=== PATIENT | female | born 1940 | race Caucasian/White ===

== ENCOUNTER 2017-03-27 21:57 | Emergency (ER) | payer MEDICARE ==
[2017-03-27] MEDS ORDERED: IOHEXOL 350 MG/ML 10 ML VIAL (for RAD DIAG) IVCONTRAST ONE (21:58)
[2017-03-27 22:00] VITALS: O2SAT 98
[2017-03-27 22:20] LABS: I-STAT POTASSIUM 3.8 MMOL/L (3.5-4.9); I-STAT SODIUM 141 MMOL/L (138-146)
[2017-03-27 22:26] LABS: BACTERIA, URINE RARE /hpf; BLOOD, URINE NEG (NEG); GLUCOSE,URINE NEG (NEG); HYALINE CAST, URINE 36 /lpf (RARE); KETONE, URINE NEG (NEG); MUCUS URINE FEW /lpf (OCC); NITRITE,URINE NEG (NEG); PH, URINE 5.5 (5.0-8.5); SQUAMOUS EPITHELIAL CELL URINE 3 /hpf (0-5); URINE COLOR YELLOW (YELLW/STRAW)
[2017-03-27 22:27] LABS: AUTOMATED NEUTROPHIL # 3.7 TH/MM3 (1.8-7.7); BASOPHIL % 0.4 % (0.0-2.0); EOSINOPHIL # 0.1 TH/MM3 (0-0.4); EOSINOPHIL % 1.4 % (0.0-4.0); HEMATOCRIT 39.6 % (35.0-46.0); HEMO FLAGS DIFF FINAL; LYMPH % 53.3 % (9.0-44.0); LYMPHOCYTE # 5.1 TH/MM3 (1.0-4.8); MEAN CELL VOLUME 98.4 FL (80.0-100.0); MEAN CORPUSCULAR HEMOGLOBIN 33.2 PG (27.0-34.0); MEAN CORPUSCULAR HGB CONC 33.7 % (32.0-36.0); MONO % 5.7 % (0.0-8.0); NEUT % 39.2 % (16.0-70.0); PLATELET COUNT 255 TH/MM3 (150-450); RED BLOOD COUNT 4.02 MIL/MM3 (4.00-5.30); RED CELL DISTRIBUTION WIDTH 16.6 % (11.6-17.2); WHITE BLOOD COUNT 9.6 TH/MM3 (4.0-11.0)
--- NOTE | 2017-03-27 22:27 | RADRPT ---
EXAM DATE/TIME: 03/27/2017 22:05 [facility] COMPARISON: No previous studies available for comparison. INDICATIONS : Trauma alert. Patient was found unresponsive. MEDICAL HISTORY : None. SURGICAL HISTORY : None. ENCOUNTER: Initial ACUITY: 1 day PAIN SCORE: Non-responsive. LOCATION: chest FINDINGS: A single view of the chest demonstrates no focal lung consolidation. No effusion. Loop recorder ident ified left hemithorax. Previous fixation lower cervical spine. CONCLUSION: 1. No acute findings. Tortuous aorta. Eugenio Cantu MD on March 27, 2017 at 22:24 Board Certified Radiologist. This report was verified electronically.
[2017-03-27 22:28] LABS: COMMENT (UR) CATH-CULTURE IND; CULTURE IF INDICATED CATH CULTURE IND
--- NOTE | 2017-03-27 22:33 | RADRPT ---
EXAM DATE/TIME: 03/27/2017 22:15 [facility] COMPARISON: No previous studies available for comparison. INDICATIONS : Trauma. Fall. RADIATION DOSE: 50.23 CTDIvol (mGy) MEDICAL HISTORY : Non-responsive. SURGICAL HISTORY : Non-responsive. ENCOUNTER: Initial ACUITY: 1 day PAIN SCALE: Non-responsive LOCATION: cranial TECHNIQUE: Multiple contiguous axial images were obtained of the head. Using automated exposure control and adj ustment of the mA and/or kV according to patient size, radiation dose was kept as low as reasonably a chievable to obtain optimal diagnostic quality images. DICOM format image data is available electro nically for review and comparison. FINDINGS: CEREBRUM: The ventricles are normal for age. No evidence of midline shift, mass lesion, hemorrhage or acute in farction. No extra-axial fluid collections are seen. POSTERIOR FOSSA: The cerebellum and brainstem are intact. The 4th ventricle is midline. The cerebellopontine angle i s unremarkable. EXTRACRANIAL: The visualized portion of the orbits is intact. SKULL: The calvaria is intact. No evidence of skull fracture. CONCLUSION: 1. No acute intracranial abnormality. Eugenio Cantu MD on March 27, 2017 at 22:30 Board Certified Radiologist. This report was verified electronically.
[2017-03-27 22:34] LABS: APTT (PATIENT) 21.3 SEC (24.3-30.1)
--- NOTE | 2017-03-27 22:36 | RADRPT ---
EXAM DATE/TIME: 03/27/2017 22:15 [facility] COMPARISON: No previous studies available for comparison. INDICATIONS : Trauma. Fall. RADIATION DOSE: 24.80 CTDIvol (mGy) MEDICAL HISTORY : Non-responsive. SURGICAL HISTORY : Non-responsive. ENCOUNTER: Initial ACUITY: 1 day PAIN SCALE: Non-responsive LOCATION: neck TECHNIQUE: Volumetric scanning of the cervical spine was performed. Multiplanar reconstructions in the sagittal, coronal and oblique axial planes were performed. Using automated exposure control and adjustment o f the mA and/or kV according to patient size, radiation dose was kept as low as reasonably achievable to obtain optimal diagnostic quality images. DICOM format image data is available electronically f or review and comparison. FINDINGS: There is previous fusion across C4-5-6-7 with anterior plate fixation. Minimal degenerative anterolis thesis of C7 on T1. No significant central bony canal stenosis. No acute fracture. No prevertebral so ft tissue swelling. CONCLUSION: 1. No acute fracture. Previous fusion C4-7. Minimal anterolisthesis of C7 on T1 likely degenerative. Eugenio Cantu MD on March 27, 2017 at 22:31 Board Certified Radiologist. This report was verified electronically.
[2017-03-27 22:41] VITALS: BP 141/80; PULSE 87; RESP 18; O2SAT 98
--- NOTE | 2017-03-27 22:41 | RADRPT ---
EXAM DATE/TIME: 03/27/2017 22:15 [facility] COMPARISON: No previous studies available for comparison. INDICATIONS : Trauma. Fall. RADIATION DOSE: 64.00 CTDIvol (mGy) MEDICAL HISTORY : Non-responsive. SURGICAL HISTORY : Non-responsive. ENCOUNTER: Initial ACUITY: 1 day PAIN SCORE: Non-responsive LOCATION: facial TECHNIQUE: Volumetric scanning of the facial bones was performed. Using automated exposure control and adjustme nt of the mA and/or kV according to patient size, radiation dose was kept as low as reasonably achiev able to obtain optimal diagnostic quality images. DICOM format image data is available [employer] y for review and comparison. FINDINGS: ORBITS: The orbital and infraorbital osseous structures are intact. The retroconal structures have a normal configuration. No radiopaque foreign bodies are seen. NASAL BONE: Remote Right nasal bone fracture. ZYGOMATIC ARCHES: Symmetric without evidence of fracture. SINUSES: The maxillary, ethmoid and frontal sinuses are intact. No air-fluid levels seen. NASAL CAVITY: The nasal septum is intact and midline. The lacrimal ducts are intact. SOFT TISSUES: No radiopaque foreign bodies seen. No soft-tissue swelling is seen. INTRACRANIAL: No intracranial air seen. CRIBIFORM PLATE: Grossly intact. CONCLUSION: 1. Remote right nasal bone fracture. CT facial bones otherwise unremarkable. Eugenio Cantu MD on March 27, 2017 at 22:38 Board Certified Radiologist. This report was verified electronically.
--- NOTE | 2017-03-27 22:44 | RADRPT ---
EXAM DATE/TIME: 03/27/2017 22:21 [facility] COMPARISON: No previous studies available for comparison. INDICATIONS : Trauma. Fall. IV CONTRAST: 95 cc Omnipaque 350 (iohexol) IV ; Cumulative dose for multiple exams. ORAL CONTRAST: No oral contrast ingested. RADIATION DOSE: 18.26 CTDIvol (mGy) ; Combined studies - Thorax/Abdomen/Pelvis MEDICAL HISTORY : Non-responsive. SURGICAL HISTORY : Non-responsive. ENCOUNTER: Initial ACUITY: 1 day PAIN SCALE: 10/10 LOCATION: Bilateral abdomen TECHNIQUE: Volumetric scanning of the abdomen and pelvis was performed. Using automated exposure control and ad justment of the mA and/or kV according to patient size, radiation dose was kept as low as reasonably achievable to obtain optimal diagnostic quality images. DICOM format image data is available electro nically for review and comparison. FINDINGS: Nondependent right is in the lung bases. No effusion or pneumothorax. Mild fatty liver. Pneumobilia is previous cholecystectomy. Spleen, adrenals, kidneys and pancreas dem onstrate no acute findings. Small fat containing umbilical hernia. No free fluid. No bowel obstructio n. No adenopathy. Hensley catheter present in the bladder. Degenerative changes in the spine with a mil d scoliosis. CONCLUSION: 1. No acute traumatic injury within the abdomen and pelvis. Previous cholecystectomy with pneumobilia . Mild fatty liver. No solid visceral injury. No free air or free fluid. Eugenio Cantu MD on March 27, 2017 at 22:39 Board Certified Radiologist. This report was verified electronically.
--- NOTE | 2017-03-27 22:46 | RADRPT ---
EXAM DATE/TIME: 03/27/2017 22:21 [facility] COMPARISON: No previous studies available for comparison. INDICATIONS : Trauma. Fall. IV CONTRAST: 95 cc Omnipaque 350 (iohexol) IV ; Cumulative dose for multiple exams. RADIATION DOSE: 18.26 CTDIvol (mGy) ; Combined studies - Thorax/Abdomen/Pelvis MEDICAL HISTORY : Non-responsive. SURGICAL HISTORY : Non-responsive. ENCOUNTER: Initial ACUITY: 1 day PAIN SCALE: Non-responsive LOCATION: chest TECHNIQUE: Volumetric scanning of the chest was performed. Using automated exposure control and adjustment of t he mA and/or kV according to patient size, radiation dose was kept as low as reasonably achievable to obtain optimal diagnostic quality images. DICOM format image data is available electronically for review and comparison. Follow-up recommendations for detected pulmonary nodules are based at a minimum on nodule size and pa tient risk factors according to Fleischner Society Guidelines. FINDINGS: Mild dependent atelectasis in the lungs. No pleural or pericardial effusion. No pneumothorax. Healing lower left anterior rib fracture. No acute rib fractures are seen. Negative for traumatic aortic injury. No mediastinal hematoma. Small hiatal hernia. See abdomen CT fo r findings below the diaphragm. CONCLUSION: 1. Negative for acute traumatic injury within the thorax. Eugenio Cantu MD on March 27, 2017 at 22:43 Board Certified Radiologist. This report was verified electronically.
--- NOTE | 2017-03-27 22:51 | RADRPT ---
EXAM DATE/TIME: 03/27/2017 22:21 [facility] COMPARISON: No previous studies available for comparison. INDICATIONS : Trauma. Fall. RADIATION DOSE: ; Reconstructed from previous dataset, no dose MEDICAL HISTORY : Non-responsive. SURGICAL HISTORY : Non-responsive. ENCOUNTER: Initial ACUITY: 1 day PAIN SCALE: Non-responsive LOCATION: Bilateral lumbar TECHNIQUE: Volumetric scanning of the lumbar spine was performed. Multiplanar reconstructions in the sagittal, coronal and oblique axial planes were performed. Using automated exposure control and adjustment of the mA and/or kV according to patient size, radiation dose was kept as low as reasonably achievable t o obtain optimal diagnostic quality images. DICOM format image data is available electronically for review and comparison. FINDINGS: Advanced degenerative disc disease is present in the lumbar spine with a mild dextroscoliosis and vac uum phenomenon at every level between L2-S1. There is no acute fracture. Minimal degenerative anterol isthesis of L4 on L5. L4-5 there is at least a moderate central canal stenosis from disc protrusion a nd facet arthropathy. No significant canal stenosis in the upper lumbar spine. Broad-based disc protr usion also present at L5-S1. CONCLUSION: 1. No acute fracture. Minimal degenerative anterolisthesis of L4 on L5. 2. Broad-based disc protrusions at L4-5 and L5-S1 with moderate stenosis at L5 and mild stenosis at L 5-S1. Eugenio Cantu MD on March 27, 2017 at 22:46 Board Certified Radiologist. This report was verified electronically.
[2017-03-27 22:52] VITALS: TEMP 95.7
--- NOTE | 2017-03-27 22:59 | RADRPT ---
EXAM DATE/TIME: 03/27/2017 22:21 [facility] COMPARISON: No previous studies available for comparison. INDICATIONS : Trauma. Fall. RADIATION DOSE: ; Reconstructed from previous dataset, no dose MEDICAL HISTORY : Non-responsive. SURGICAL HISTORY : Non-responsive. ENCOUNTER: Initial ACUITY: 1 day PAIN SCALE: Non-responsive LOCATION: thoracic TECHNIQUE: Volumetric scanning of the thoracic spine was performed. Multiplanar reconstructions in the sagittal , coronal and oblique axial planes were performed. Using automated exposure control and adjustment o f the mA and/or kV according to patient size, radiation dose was kept as low as reasonably achievable to obtain optimal diagnostic quality images. DICOM format image data is available electronically f or review and comparison. FINDINGS: The vertebral bodies of the thoracic spine are in normal alignment without evidence of subluxation. Vertebral body height is maintained. No fractures are seen. T1-T2: Normal. T2-T3: The thecal sac has a normal diameter. No evidence of disc bulge or protrusion. T3-T4: The thecal sac has a normal diameter. No evidence of disc bulge or protrusion. T4-T5: The thecal sac has a normal diameter. No evidence of disc bulge or protrusion. T5-T6: The thecal sac has a normal diameter. No evidence of disc bulge or protrusion. T6-T7: The thecal sac has a normal diameter. No evidence of disc bulge or protrusion. T7-T8: The thecal sac has a normal diameter. No evidence of disc bulge or protrusion. T8-T9: The thecal sac has a normal diameter. No evidence of disc bulge or protrusion. T9-T10: The thecal sac has a normal diameter. No evidence of disc bulge or protrusion. T10-T11: The thecal sac has a normal diameter. No evidence of disc bulge or protrusion. T11-T12: The thecal sac has a normal diameter. No evidence of disc bulge or protrusion. T12-L1: The thecal sac has a normal diameter. No evidence of disc bulge or protrusion. CONCLUSION: 1. 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 No canal stenosis. No fracture or spondy lolisthesis. No paravertebral soft tissue swelling. Eugenio Cantu MD on March 27, 2017 at 22:55 Board Certified Radiologist. This report was verified electronically.
[2017-03-27] MEDS ORDERED: ONDANSETRON HCL 4 MG/2 ML VIAL IV PUSH ONE (23:00)
[2017-03-27] MEDS ORDERED: MORPHINE SULFATE 4 MG/ML INJ IV PUSH ONE (23:00)
[2017-03-27] MEDS ORDERED: cefTRIAXone INJ 1,000 MG in SODIUM CHLORIDE 0.9% INJ 100 ML IV ONE (23:00)
[2017-03-27 23:08] VITALS: TEMP 97.3
--- NOTE | 2017-03-27 23:17 | PD ---
HPI . Trauma alert Chief Complaint: Trauma (Alert) Time Seen by Provider: 22:04 Travel History International Travel<30 days: No Contact w/Intl Traveler<30days: No History of Present Illness HPI This patient presented as a trauma alert. The story is that she had a trip and fall over her walker striking her nose. She got up and got into the easy chair and seemed to be fine. Approximately 30 minutes later, her son noted an alteration in her level of consciousness. [facility] was called. They got a GCS of less than 12 and activated the trauma alert. She was subsequently brought to us for further evaluation. EMS reports that her vital signs were stable en route. The patient is complaining of mid to lower back pain. She is also complaining with some nasal pain. No noted modifying factors. Back pain is rated 8/10. Allergies-Medications (Allergen,Severity, Reaction): Coded Allergies: No Known Allergies (Unverified , 03/27/17) Review of Systems Except as stated in HPI: all other systems reviewed are Neg General / Constitutional: No: Fever, Chills HENT: No: Headaches Cardiovascular: No: Chest Pain or Discomfort Respiratory: No: Shortness of Breath Gastrointestinal: No: Nausea, Vomiting, Diarrhea, Abdominal Pain Genitourinary: No: Urgency, Frequency, Dysuria Physical Exam Narrative GENERAL: Patient is awake and alert. She was able to tell me her name that she was at the hospital. She was unable to tell me the day. SKIN: warm/dry. HEAD: Normocephalic. EYES: Pupils equal and round. No scleral icterus. No injection or drainage. ENT: No nasal bleeding or discharge. Mucous membranes pink and moist. She has a superficial laceration on the bridge of the nose. NECK: Trachea midline. Full range of motion without pain.. CARDIOVASCULAR: Regular rate and rhythm. Heart sounds are normal. RESPIRATORY: No accessory muscle use. Clear to auscultation. Breath sounds equal bilaterally. GASTROINTESTINAL: Abdomen soft. Nontender. Bowel sounds present. Nondistended. MUSCULOSKELETAL: No obvious deformities. NEUROLOGICAL: Awake and alert. No obvious cranial nerve deficits. Motor grossly within normal limits. Normal speech. PSYCHIATRIC: Appropriate mood and affect; insight and judgment normal. Data Data Last Documented VS Vital Signs Date Time Temp Pulse Resp B/P (MAP) Pulse Ox O2 Delivery O2 Flow Rate FiO2 03/27/17 23:08 97.3 03/27/17 22:41 87 18 98 Room Air 03/27/17 22:00 2.00 Orders Orders I-Stat Profile (03/27/17 22:04) I-Stat Creatinine (03/27/17 22:04) Complete Blood Count With Diff (03/27/17 22:04) Prothrombin Time / Inr (Pt) (03/27/17 22:04) Act Partial Throm Time (Ptt) (03/27/17 22:04) Type And Screen (03/27/17 22:04) Urinalysis - C+S If Indicated (03/27/17 22:04) Chest, Single Ap (03/27/17 22:04) Ct Brain W/O Iv Contrast(Rout) (03/27/17 22:04) Ct Cerv Spine W/O Contrast (03/27/17 22:04) Ct Thor Spine W/O Contrast (03/27/17 22:04) Ct Lumb Spine W/O Contrast (03/27/17 22:04) Ct Facial Bones W/O Iv Cont (03/27/17 22:04) Electrocardiogram (03/27/17 22:04) Iv Access Insert/Monitor (03/27/17 22:04) Ecg Monitoring (03/27/17 22:04) Oximetry (03/27/17 22:04) Oxygen Administration (03/27/17 22:04) Troponin I (03/27/17 22:04) Ct Abd/Pel W Iv Contrast(Rout) (03/27/17 22:08) Ct Thorax/ Chest W Iv Contrast (03/27/17 22:08) Iohexol 350 Inj (Omnipaque 350 Inj) (03/27/17 21:58) Urine Culture (03/27/17 22:08) Morphine Inj (Morphine Inj) (03/27/17 23:00) Ondansetron Inj (Zofran Inj) (03/27/17 23:00) Warming Mclean / Warming Syst PRN (03/27/17 22:46) Ceftriaxone Inj (Rocephin Inj) (03/27/17 23:00) Labs Laboratory Tests Test 03/27/17 22:05 03/27/17 22:08 White Blood Count 9.6 TH/MM3 Red Blood Count 4.02 MIL/MM3 Hemoglobin 13.3 GM/DL Bedside Hemoglobin 13.6 G/DL Hematocrit 39.6 % Bedside Hematocrit 40.0 % Mean Corpuscular Volume 98.4 FL Mean Corpuscular Hemoglobin 33.2 PG Mean Corpuscular Hemoglobin Concent 33.7 % Red Cell Distribution Width 16.6 % Platelet Count 255 TH/MM3 Mean Platelet Volume 9.2 FL Neutrophils (%) (Auto) 39.2 % Lymphocytes (%) (Auto) 53.3 % Monocytes (%) (Auto) 5.7 % Eosinophils (%) (Auto) 1.4 % Basophils (%) (Auto) 0.4 % Neutrophils # (Auto) 3.7 TH/MM3 Lymphocytes # (Auto) 5.1 TH/MM3 Monocytes # (Auto) 0.5 TH/MM3 Eosinophils # (Auto) 0.1 TH/MM3 Basophils # (Auto) 0.0 TH/MM3 CBC Comment DIFF FINAL Differential Comment Prothrombin Time 10.0 SEC Prothromb Time International Ratio 1.0 RATIO Activated Partial Thromboplast Time 21.3 SEC Bedside Sodium 141 MMOL/L Bedside Potassium 3.8 MMOL/L Bedside Chloride 103 MMOL/L Bedside Blood Urea Nitrogen 25 MG/DL Bedside Creatinine 1.0 MG/DL Bedside Glucose 219 MG/DL Troponin I LESS THAN 0.02 NG/ML Urine Color YELLOW Urine Turbidity HAZY Urine pH 5.5 Urine Specific [place] 1.020 Urine Protein TRACE mg/dL Urine Glucose (UA) NEG mg/dL Urine Ketones NEG mg/dL Urine Occult Blood NEG Urine Nitrite NEG Urine Bilirubin NEG Urine Urobilinogen 2.0 MG/DL Urine Leukocyte Esterase SMALL Urine RBC 2 /hpf Urine WBC 13 /hpf Urine WBC Clumps RARE Urine Squamous Epithelial Cells 3 /hpf Urine Bacteria RARE /hpf Urine Hyaline Casts 36 /lpf Urine Mucus FEW /lpf Microscopic Urinalysis Comment CATH-CULTURE IND MDM Medical Screen Exam Complete: Yes Emergency Medical Condition: Yes Interpretation(s) EKG showed a normal sinus rhythm with no acute ischemic change. Differential Diagnosis Differential diagnosis of altered mental status includes but is not limited to infection, electrolyte abnormality, neurological event, intoxication Narrative Course This patient presented to us as a trauma alert. However, on arrival here, the patient really did not look like a trauma patient. However, she had had a fall with an injury to her nose followed later by an alteration in her level of consciousness. Therefore, urgent CT of her head was done. It shows no bleed. In addition to a trauma workup, she had a medical workup. This included an EKG , troponin and urinalysis in addition to the usual trauma evaluation. CBC Diagram 03/27/17 22:05 Electrolytes are normal. Troponin is normal. UA shows small leukocyte esterase , 13 white cells, white blood cell clumps and bacteria. Rocephin has subsequently been ordered. In the meantime, this patient's level of consciousness is now normal. Last Impressions Chest CT 03/27/172207 Signed Impressions: Service Date/Time: Monday, March 27, 2017 22:21 - CONCLUSION: 1. Negative for acute traumatic injury within the thorax. Eugenio Cantu MD Abdomen/Pelvis CT 03/27/[id number] Signed Impressions: Service Date/Time: Monday, March 27, 2017 22:21 - CONCLUSION: 1. No acute traumatic injury within the abdomen and pelvis. Previous cholecystectomy with pneumobilia. Mild fatty liver. No solid visceral injury. No free air or free fluid. Eugenio Cantu MD Maxillofacial CT 03/27/[id number] Signed Impressions: Service Date/Time: Monday, March 27, 2017 22:15 - CONCLUSION: 1. Remote right nasal bone fracture. CT facial bones otherwise unremarkable. Eugenio Cantu MD Lumbar Spine CT 03/27/[id number] Signed Impressions: Service Date/Time: Monday, March 27, 2017 22:21 - CONCLUSION: 1. No acute fracture. Minimal degenerative anterolisthesis of L4 on L5. 2. Broad-based disc protrusions at L4-5 and L5-S1 with moderate stenosis at L5 and mild stenosis at L5-S1. Eugenio Cantu MD Head CT [id number]/27/[id number] Signed Impressions: Service Date/Time: Monday, March 27, 2017 22:15 - CONCLUSION: 1. No acute intracranial abnormality. Eugenio Cantu MD Chest X-Ray 03/27/[id number] Signed Impressions: Service Date/Time: Monday, March 27, 2017 22:05 - CONCLUSION: 1. No acute findings. Tortuous aorta. Eugenio Cantu MD Cervical Spine CT 03/27/[id number] Signed Impressions: Service Date/Time: Monday, March 27, 2017 22:15 - CONCLUSION: 1. No acute fracture. Previous fusion C4-7. Minimal anterolisthesis of C7 on T1 likely degenerative. Eugenio Cantu MD This patient may very well be stable for discharge to home. Trauma Alert - Level One Trauma Alert Level One: Full trauma team activate Surgical Consult: Not indicated Diagnosis Diagnosis: Primary Impression: Nasal abrasion Qualified Codes: S00.31XA - Abrasion of nose, initial encounter Additional Impression: Urinary tract infection Qualified Codes: N30.00 - Acute cystitis without hematuria Patient Instructions: General Instructions, Nasal Contusion (ED), Urinary Tract Infection in (GEN) Med/Other Pt SpecificInfo: Prescription(s) given Scripts Cephalexin (Keflex) 500 Mg Capsule 500 MG PO TID for Infection for 5 Days, CAP 0 Refills Prov: Jalyn Le MD 03/27/17 Disposition: 01 DISCHARGE HOME Condition: Stable Jalyn Le MD Mar 27, 2017 23:17
[2017-03-27] MEDS ORDERED: CEPH-460 PO (23:55)
[2017-03-28 01:02] VITALS: BP 123/88
--- NOTE | 2017-03-28 12:38 | EKG ---
Date Performed: 03/27/2017 Time Performed: 22:51:55 PTAGE: 89 years EKG: Left axis deviation Poor R-wave progression across the precordium, which may be a normal va riant. Minor nonspecific T-wave change ABNORMAL ECG NO PREVIOUS TRACING DOCTOR: Nash Jaeger Interpretating Date/Time 03/28/2017 12:37:28
== END 2017-03-28 01:08 | disposition home or self-care (01) ==
LOC: NEPI 21:57 → EDBD 21:57 → NEPE 03-28 01:08
DX: S02.2XXA Fracture of nasal bones, initial encounter for closed fracture (principal); N30.00 Acute cystitis without hematuria; B96.20 Unspecified Escherichia coli [E. coli] as the cause of diseases classified elsewhere; M54.5 Low back pain; R94.31 Abnormal electrocardiogram [ECG] [EKG]; W01.0XXA Fall on same level from slipping, tripping and stumbling without subsequent striking against object, initial encounter
CPT/HCPCS: 70450; 70486; 71010; 71260; 72125; 72128; 72131; 74177; 81001; 82435; 82565; 82947; 84132; 84295; 84484; 84520; 85025; 85610; 85730; 86850; 86900; 86901; 87077; 87086; 87186; 93005; 96374; 96375; 99285; G0390; J0696; J2270; J2405; Q9967; 99291